=== PATIENT | female | born 2005 | race African-American/Black ===

== ENCOUNTER 2024-05-14 18:19 | Emergency (ER) | payer SELFPAY ==
[~2024-05-14] VITALS: Ht 170.2 cm; Wt 65.0 kg
[2024-05-14 18:24] VITALS: O2SAT 100
[2024-05-14] MEDS: DEXAMETHASONE 4MG/ML 1ML VIAL IM ONE (21:28)
[2024-05-14] MEDS: AMOXICILLIN 500MG CAPSULE PO ONE (21:28)
[2024-05-14] MEDS: KETOROLAC 30MG/ML VIAL IM ONE (21:28)
[2024-05-14] MEDS: ACETAMINOPHEN 325MG TABLET PO ONE (21:29)
[2024-05-14] MEDS ORDERED: AMOX-494 MT (22:23)
[2024-05-14] MEDS ORDERED: IBUP-2029 MT (22:23)
[2024-05-14 22:48] VITALS: BP 110/79; PULSE 89; RESP 13; TEMP 36.61404; O2SAT 98
== END 2024-05-14 22:50 | disposition home or self-care (01) ==
LOC: ER 18:19
DX: J02.8 Acute pharyngitis due to other specified organisms (principal)
CPT/HCPCS: 99284; 96372; J1100; J1885

== ENCOUNTER 2024-11-19 08:47 | Emergency (ER) | payer SELFPAY ==
[~2024-11-19] VITALS: Ht 172.7 cm; Wt 75.0 kg
[~2024-11-19 08:47] MED LIST: AMOX-494 MT; IBUP-2029 MT
[2024-11-19 08:59] VITALS: O2SAT 100
[2024-11-19] MEDS ORDERED: AMOX1TAB16 MT (09:41)
[2024-11-19] MEDS: AMOXICILLIN/POTASSIUM CLAVULANATE 875/125MG TAB PO ONE (09:47)
[2024-11-19] MEDS: AMOXICILLIN/POTASSIUM CLAVULANATE 875/125MG TAB PO NR (09:52)
[2024-11-19 09:55] VITALS: BP 133/82; PULSE 75; RESP 16; TEMP 37.1; O2SAT 100
== END 2024-11-19 09:53 | disposition home or self-care (01) ==
LOC: ER 08:47
DX: J02.9 Acute pharyngitis, unspecified (principal); Z79.899 Other long term (current) drug therapy
CPT/HCPCS: 81025; 99283

== ENCOUNTER 2024-11-30 12:05 | Emergency (ER) | payer SELFPAY ==
[~2024-11-30] VITALS: Ht 172.7 cm; Wt 72.0 kg
[~2024-11-30 12:05] MED LIST changes: +AMOX1TAB16 MT
[2024-11-30 12:20] VITALS: O2SAT 96
[2024-11-30] MEDS ORDERED: DEXAMETHASONE 0.5MG/5ML ORAL SYR PO ONE (14:30)
[2024-11-30] MEDS: HYDROCODONE/ACETAMINOPHEN 5/325MG TABLET PO ONE (14:39)
[2024-11-30] MEDS: CLINDAMYCIN HCL 150MG CAPSULE PO STA (14:39)
[2024-11-30] MEDS: DEXAMETHASONE 10 MG/ML VIAL PO SCH (14:39)
[2024-11-30] MEDS: KETOROLAC 30MG/ML VIAL IM ONE (14:39)
[2024-11-30 15:13] LABS: HEMATOCRIT. 37.7 % (36.0-48.0); HEMOGLOBIN. 13.1 g/dL (12.0-16.0); MEAN CORPUSCULAR HEMOGLOBIN 31.5 pg (28.0-32.0); MEAN CORPUSCULAR HGB CONC 34.7 g/dL (31.0-37.0); MEAN CORPUSCULAR VOLUME 90.9 fL (81.0-99.0); MEAN PLATELET VOLUME 10.5 fl (7.4-10.4); PLATELET 147 x1000/uL (130-400); RED BLOOD CELL COUNT 4.15 mill/uL (4.2-5.4); RED CELL DISTRIBUTION WIDTH 12.6 % (11.6-14.6); WHITE BLOOD COUNT 10.5 x1000/uL (4.5-11.0)
[2024-11-30 15:15] LABS: DIFFERENTIAL COMMENT 1
[2024-11-30 15:21] LABS: CARBON DIOXIDE 23 mEq/L (21-32); CHLORIDE 104 mEq/L (98-107); POTASSIUM 3.4 mEq/L (3.5-5.1); SODIUM 137 mEq/L (136-145)
[2024-11-30 15:22] LABS: CALCIUM 8.8 mg/dL (8.7-10.4)
[2024-11-30 15:26] LABS: CREATININE 0.6 mg/dL (0.6-1.0); GLUCOSE 82 mg/dL (70-105)
[2024-11-30 15:27] LABS: UREA NITROGEN BLOOD 8 mg/dL (9-23)
[2024-11-30 15:32] LABS: HCG SCREEN NEGATIVE
[2024-11-30 15:38] LABS: MONOTEST POSITIVE (NEGATIVE)
[2024-11-30 16:01] LABS: PLATELET ESTIMATE NORMAL
[2024-11-30 16:07] LABS: ALANINE AMINOTRANSFERASE 31 IU/L (10-49); ALBUMIN 4.1 g/dL (3.2-4.8); ASPARTATE AMINOTRANSFERASE 44 IU/L (<34); BILIRUBIN DIRECT 0.2 mg/dL (<=3.0)
[2024-11-30 16:08] LABS: BILIRUBIN TOTAL 0.6 mg/dL (0.1-1.0); PROTEIN TOTAL 8.2 g/dL (6.0-8.3)
[2024-11-30] MEDS ORDERED: CLIN-194 MT (18:12)
[2024-11-30] MEDS ORDERED: TOPUD PO (18:13)
[2024-11-30] MEDS ORDERED: IBUP-2028 MT (18:13)
[2024-11-30] MEDS: POTASSIUM CHLORIDE 20MEQ/PACKET PO ONE (18:44)
[2024-11-30] MEDS: CLINDAMYCIN 300 MG in DEXTROSE 5% WATER 50 ML IV ONE (18:58)
[2024-11-30 19:06] VITALS: BP 117/63; PULSE 80; RESP 16; TEMP 36.5; O2SAT 98
[2024-11-30] MEDS ORDERED: IOHEXOL-300 100 ML BOTTLE ONE (23:13)
== END 2024-11-30 19:20 | disposition home or self-care (01) ==
LOC: ER 12:05
DX: B27.90 Infectious mononucleosis, unspecified without complication (principal); L02.91 Cutaneous abscess, unspecified; J02.9 Acute pharyngitis, unspecified; Z79.52 Long term (current) use of systemic steroids; Z79.899 Other long term (current) drug therapy
CPT/HCPCS: 80076; 80048; 81025; 84703; 85025; 86308; 36415; 70491; 96365; 96372; 99285; Q9967; J3490; J1100; J1885; J7060; Z7610 ×2; J8540